=== PATIENT | female | born 1955 | race Caucasian/White ===

== ENCOUNTER 2016-11-09 00:23 | Emergency (ER) | payer MEDICARE, OTHER ==
[~2016-11-09] VITALS: Ht 165.1 cm; Wt 52.6 kg
[~2016-11-09 00:23] MED LIST: AMLO-27 PO; CELE200C PO; CONJ1TAB PO; PRAV20TA46 PO; [UNRECOGNIZED DRUG - CODE] PO
[2016-11-09 00:36] VITALS: BP 139/87
--- NOTE | 2016-11-09 00:47 | NUR ---
PT TAKEN TO [facility] FROM [facility]
--- NOTE | 2016-11-09 00:55 | NUR ---
PT RETURN FROM XRAY TO LOBBY
--- NOTE | 2016-11-09 01:00 | NUR ---
PT TAKEN TO BED 7
[2016-11-09] MEDS ORDERED: LIDOCAINE 2% 1000 MG/50 ML VIAL INJ ONE (01:05)
[2016-11-09] MEDS ORDERED: HYDROcodone/APAP 10/325 MG 1 TAB TAB PO ONE (01:05)
--- NOTE | 2016-11-09 01:10 | NUR ---
60Y F BIB DAUGHTER C/O OF RT WRIST PAIN AFTER PT FELL AT HOME.
--- NOTE | 2016-11-09 01:11 | NUR ---
Dr. Harrison evaluating patient at bedside.
--- NOTE | 2016-11-09 01:54 | NUR ---
X-Ray at bedside.
[2016-11-09 02:15] VITALS: BP 139/87
== END 2016-11-09 02:15 | disposition home or self-care (01) ==
LOC: MED 00:23
DX: S52.531A Colles' fracture of right radius, initial encounter for closed fracture (principal); S52.611A Displaced fracture of right ulna styloid process, initial encounter for closed fracture; I10 Essential (primary) hypertension; F17.210 Nicotine dependence, cigarettes, uncomplicated; W18.41XA Slipping, tripping and stumbling without falling due to stepping on object, initial encounter; Y93.89 Activity, other specified; Y92.89 Other specified places as the place of occurrence of the external cause; Y99.8 Other external cause status
CPT/HCPCS: 25605; 73110; 99284; J2001; Q0092

== ENCOUNTER 2019-04-22 16:14 | Emergency (ER) | payer MEDICARE, OTHER ==
[~2019-04-22] VITALS: Ht 162.6 cm; Wt 45.4 kg
[~2019-04-22 16:14] MED LIST changes: -AMLO-27 PO; +AMLO-272 PO
[2019-04-22 16:19] VITALS: BP 157/78
[2019-04-22] MEDS ORDERED: AMOXIL/CLAVULANATE 500/125 MG 1 TAB PO ONE (19:35)
[2019-04-22 20:34] VITALS: BP 155/78
== END 2019-04-22 20:34 | disposition home or self-care (01) ==
LOC: MED 16:14
DX: S31.159A Open bite of abdominal wall, unspecified quadrant without penetration into peritoneal cavity, initial encounter (principal); S51.051A Open bite, right elbow, initial encounter; I10 Essential (primary) hypertension; E07.9 Disorder of thyroid, unspecified; Z79.899 Other long term (current) drug therapy; W50.3XXA Accidental bite by another person, initial encounter; Y93.89 Activity, other specified; Y92.89 Other specified places as the place of occurrence of the external cause; Y99.8 Other external cause status
CPT/HCPCS: 81002; 99283

== ENCOUNTER 2019-05-01 16:39 | Emergency (ER) | payer OTHER, MEDICARE ==
[~2019-05-01] VITALS: Ht 165.1 cm; Wt 43.5 kg
[2019-05-01 16:55] VITALS: BP 162/72
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
--- NOTE | 2019-05-01 17:33 | NUR ---
PT MOVED TO BED 11.
--- NOTE | 2019-05-01 17:57 | NUR ---
X-RAY AT BEDSIDE
[2019-05-01 18:05] LABS: BASOPHILS # (AUTO) 0.1 K/uL (0.00-0.22); BASOPHILS % (AUTO) 0.6 % (0.0-2.0); EOSINOPHILS # (AUTO) 0.4 K/uL (0-0.4); EOSINOPHILS % (AUTO) 4.8 % (0.0-4.0); HEMATOCRIT 38.6 % (36-48); LYMPHOCYTES # (AUTO) 3.1 K/uL (2.5-16.5); LYMPHOCYTES % (AUTO) 35.1 % (20.5-51.1); MEAN CORPUSCULAR HEMOGLOBIN 32 pg (27-31); MEAN CORPUSCULAR HGB CONC 34 g/dL (33-37); MEAN CORPUSCULAR VOLUME 95.4 fL (80-94); MONOCYTES # (AUTO) 0.6 K/uL (0.8-1.0); MONOCYTES % (AUTO) 6.9 % (1.7-9.3); NEUTROPHILS # (AUTO) 4.6 K/uL (1.8-7.7); NEUTROPHILS % (AUTO) 52.6 % (42.2-75.2); PLATELET COUNT (AUTO) 336 K/uL (140-450); RED BLOOD CELL COUNT(AUTO) 4.05 MIL/uL (4.20-5.40); RED CELL DISTRIBUTION WIDTH 13.6 % (11.6-13.7); WHITE BLOOD COUNT (AUTO) 8.8 K/uL (4.8-10.8)
[2019-05-01 18:54] LABS: ANION GAP 12.8 (8-16); CARBON DIOXIDE 31.7 mmol/L (21-32); CREATININE 0.8 mg/dL (0.6-1.3); POTASSIUM 3.5 mmol/L (3.5-5.1)
[2019-05-01 18:59] LABS: ALBUMIN 3.7 g/dL (3.4-5.0); TOTAL BILIRUBIN 0.2 mg/dL (0.0-1.0)
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
[2019-05-01] MEDS ORDERED: VANCOMYCIN 1,000 MG in DEXTROSE 5% 250 ML IV ONE (19:40)
[2019-05-01] MEDS ORDERED: HYDROcodone/APAP 5/325 MG 1 TAB TAB PO ONE (19:45)
[2019-05-01] MEDS ORDERED: ONDANSETRON 4 MG ODT PO ONE (19:45)
[2019-05-01] MEDS ORDERED: NACL 0.9% 500 ML IV ONE (19:45)
[2019-05-01] MEDS ORDERED: cefTRIAXone 1,000 MG VIAL ONE (19:48)
[2019-05-01] MEDS ORDERED: ASPI-1718 PO (20:40)
[2019-05-01] MEDS ORDERED: VANCOMYCIN 1,000 MG VIAL ONE (20:55)
--- NOTE | 2019-05-01 21:29 | NUR ---
NO CHANGES FROM PREVIOUS ASSESSMENT. PT APPEARS TO BE IN NO DISTRESS AT THIS TIME. WAITING FOR TRANSFER. WILL CONTINUE TO MONITOR.
--- NOTE | 2019-05-01 22:19 | NUR ---
CALLED REPORT TO CEDRIC MILLER AT [facility]. PT WILL BE TRANSFERED TO ROOM 2145 BY [facility] [id number]. PT STABLE AT THIS TIME. PT APPEARS TO BE IN NO DISTRESS.
--- NOTE | 2019-05-01 22:29 | NUR ---
PT STATED THAT IT IS OK TO DISCUSS PT'S MEDICAL INFO WITH PT'S DAUGHTER JEREMIAS. CALLED PT'S DAUGHTER, DISCUSSED PT'S MEDICAL TREATMENT AND MADE HER AWARE THAT PT IS GETTING TRANSFERRED TO [facility].
[2019-05-01 22:41] VITALS: BP 176/74
--- NOTE | 2019-05-01 22:43 | NUR ---
Patient to be transferred to [facility]. Is being transferred due to . Receiving facility has accepting physician and available space. ER physician has signed transfer form. Patient or responsible republican has agreed to transfer and signed form. Patient belongings inventoried and will be sent with patient. Copy of nursing notes, lab reports, EKG, Physicians Orders and X-rays to be sent with patient. Report called to at receiving facility. ambulance service has been called for transfer.
--- NOTE | 2019-05-02 09:12 | NUR ---
Late entry. Confirmed with RN that Vancomycin IV was completed at 2230
== END 2019-05-01 22:42 | disposition short-term general hospital (02) ==
LOC: MED 16:39
DX: S51.051A Open bite, right elbow, initial encounter (principal); L02.413 Cutaneous abscess of right upper limb; L03.113 Cellulitis of right upper limb; I10 Essential (primary) hypertension; E78.5 Hyperlipidemia, unspecified; Z79.899 Other long term (current) drug therapy; Z79.82 Long term (current) use of aspirin; Z98.890 Other specified postprocedural states; W50.3XXA Accidental bite by another person, initial encounter; Y93.89 Activity, other specified; Y92.89 Other specified places as the place of occurrence of the external cause; Y99.8 Other external cause status
CPT/HCPCS: 36415; 73080; 76881; 80053; 83605; 85025; 86140; 87040; 96365; 96366; 96368; 99285; J0696; J3370; J7030; J7060; Q0092; Q0162